=== PATIENT | male | born 1970 | race Caucasian/White ===

== ENCOUNTER 2020-11-10 21:57 | Observation (INO) ==
[2020-11-11] MEDS ORDERED: methylPREDNISolone 125 MG/2 ML VIAL IVP ONE (02:46)
[2020-11-11] MEDS ORDERED: EPINEPHrine 1 MG/ML VIAL IM ONE (02:46)
[2020-11-11] MEDS ORDERED: 0.9 % Sodium Chloride 1,000 ML IVC ONE (02:46)
[2020-11-11 03:55] LABS: Basophils % 0.2 %; Eosinophils # 0.1 K/mcL (0.0-0.6); Eosinophils % 0.4 %; Hematocrit 49.5 % (37.5-50.1); Hemoglobin 16.3 g/dL (12.9-16.9); Immature Granulocytes % 0.6 % (0-4); Lymphocytes # 4.6 K/mcL (0.6-4.6); Lymphocytes % 28.2 %; Mean Corpuscular HGB Conc 32.9 g/dL (31.6-35.5); Mean Corpuscular Hemoglobin 29.7 pg (28.0-33.3); Mean Corpuscular Volume 90.2 fL (83.0-100.0); Mean Platelet Volume 10.4 fL (9.4-12.4); Monocytes # 0.7 K/mcL (0.0-1.3); Monocytes % 4.5 %; Neutrophils # 10.8 K/mcL (1.6-8.9); Platelet Count 264 K/mcL (140-400); Red Blood Count 5.49 M/mcL (4.19-5.50); Red Cell Distribution Width 13.7 % (11.5-14.5); Segmented Neutrophils % 66.1 %; White Blood Count 16.3 K/mcL (4.3-11.1)
[2020-11-11 04:07] LABS: Blood Urea Nitrogen 15 mg/dL (6-20); Calcium 9.3 mg/dL (8.6-10.3); Carbon Dioxide 26 mEq/L (23-29); Chloride 105 mEq/L (98-107); Glucose 83 mg/dL (70-105); Osmolality,Calculated 290 (280-300); Sodium 140 mEq/L (136-145)
[2020-11-11] MEDS ORDERED: PrednisoLONE Oral Soln 15 MG/5 ML UDC PO ONE (04:39)
[2020-11-11] MEDS ORDERED: Naloxone 0.4 MG/ML INJ IVP PRN (04:40)
[2020-11-11 04:46] LABS: BUN/Creatinine Ratio 16 (6-26); eGFR For African Americans > 60 (> 60); eGFR For Non-African Americans > 60 (> 60)
[2020-11-11 06:57] VITALS: BP 125/79; PULSE 73; TEMP 97.7; O2SAT 97
[2020-11-11] MEDS ORDERED: Famotidine 20 MG TABLET PO SCH (09:00)
== END 2020-11-11 12:01 | disposition home or self-care (01) ==
LOC: 3BNU 21:57 → EMEROOARM 21:57 → SUATTDRO 11-11 04:17 → 3BNU 11-11 06:37
PROVIDERS: ADMIT Internal Medicine; ATTEND Registered Nurse